=== PATIENT | male | born 1995 | race Caucasian/White ===

== ENCOUNTER → 2018-03-13 | Outpatient (CLI) | payer MEDICAID ==
[~2018-03-13] MED LIST: ALPR1TAB10 PO; LACT20SO13 PO; MELA1TAB22 PO; METO5TAB2 PO; PANT20TA3 PO; POLY17PO5 PO; REGADENOSON 0.4 MG/5 ML SYRINGE ONE; SULF1TAB24 PO
== END | disposition home or self-care (01) ==
LOC: CFH 07:55
PROVIDERS: ATTEND Internal Medicine Cardiovascular Disease
DX: R07.89 Other chest pain (principal)
CPT/HCPCS: 78452; 93017; 93306; A9502; J2785